=== PATIENT | male | born 1975 | race Caucasian/White ===

== ENCOUNTER 2021-07-07 10:23 | Emergency (ER) | payer OTHER ==
[~2021-07-07 10:23] MED LIST: AUGMENTIN 875-1 EACH PO
[2021-07-07] MEDS ORDERED: AMOXICILLIN500 MG PO (12:07)
== END 2021-07-07 12:25 | disposition home or self-care (01) ==
LOC: FER 10:23
DX: J02.9 Acute pharyngitis, unspecified (principal); I10 Essential (primary) hypertension; Z87.891 Personal history of nicotine dependence
CPT/HCPCS: 87880; 99283

== ENCOUNTER 2021-07-11 20:10 | Emergency (ER) | payer OTHER ==
[~2021-07-11 20:10] MED LIST changes: +AMOXICILLIN500 MG PO
[2021-07-11] MEDS ORDERED: MAGICMW SSW (21:07)
[2021-07-11] MEDS ORDERED: MAGIC MOUTHWASH PO (21:24)
== END 2021-07-11 21:48 | disposition home or self-care (01) ==
LOC: FER 20:10
DX: B08.4 Enteroviral vesicular stomatitis with exanthem (principal); K12.0 Recurrent oral aphthae; I10 Essential (primary) hypertension; Z79.899 Other long term (current) drug therapy
CPT/HCPCS: 99282